=== PATIENT | male | born 1990 | race Caucasian/White ===

== ENCOUNTER 2016-12-11 17:44 | Emergency (ER) | payer BC, OTHER ==
[~2016-12-11] VITALS: Ht 188 cm; Wt 84.1 kg
[2016-12-11 17:45] VITALS: BP 151/70
[2016-12-11] MEDS ORDERED: PRED10TA2 PO (18:22)
[2016-12-11] MEDS ORDERED: predniSONE 20 MG TAB PO ONE (18:30)
[2016-12-11] MEDS ORDERED: LORATADINE 10 MG TAB PO ONE (18:30)
== END 2016-12-11 18:40 | disposition home or self-care (01) ==
LOC: M ED 17:44
DX: R21 Rash and other nonspecific skin eruption (principal); L50.9 Urticaria, unspecified; L29.9 Pruritus, unspecified; T78.40XA Allergy, unspecified, initial encounter; Y92.9 Unspecified place or not applicable; Y93.9 Activity, unspecified; Z88.0 Allergy status to penicillin

== ENCOUNTER → 2018-09-24 | Outpatient (CLI) | payer BC, OTHER ==
[~2018-09-24] MED LIST: PRED10TA2 PO
--- NOTE | 2018-09-24 14:50 | REP ---
Clinical: Pain. Technique: AP, lateral, bilateral oblique views left foot . Findings: The osseous structures and joint spaces are intact and normal. There is no evidence for acute fracture or dislocation. Surrounding soft tissues are unremarkable. No subcutaneous emphysema or radiodense foreign body. Impression: Age-appropriate left foot series . No acute fracture or dislocation. Electronically Signed by Elvin Ybarra MD 09/24/2018 02:42 P
== END ==
LOC: M WUC 14:16
PROVIDERS: ATTEND Physician Assistant
DX: M79.672 Pain in left foot (principal)

== ENCOUNTER → 2021-04-07 | Outpatient (CLI) | payer BC ==
--- NOTE | 2021-04-07 17:04 | REP ---
INDICATION: PAIN IN RIGHT ANKLE AND JOINTS OF RIGHT FOOT. COMPARISON: None. TECHNIQUE: Four views of the right ankle. FINDINGS: There is moderate to marked anterolateral soft tissue swelling about the ankle. Ankle mortise is intact. No fracture is seen. IMPRESSION: Moderate soft tissue swelling. No fracture or subluxation seen. <Electronically signed by Edwin Haile > 04/07/21 [id number]
== END ==
LOC: M RAD 16:28
PROVIDERS: ATTEND Physician Assistant
DX: M25.571 Pain in right ankle and joints of right foot (principal); M79.89 Other specified soft tissue disorders